=== PATIENT | male | born 1940 | race Caucasian/White ===

== ENCOUNTER 2021-04-09 23:41 | Emergency (ER) | payer OTHER ==
[~2021-04-09] VITALS: Ht 172.7 cm; Wt 70.3 kg
[2021-04-09 23:41] VITALS: BP_SYST 138
[~2021-04-09 23:41] MED LIST: AMLO5TAB92 PO; HYDR25TA4 PO; LISI20TA30 PO; MESA400T14 PO; METF1000 PO
[2021-04-10] MEDS ORDERED: NITROGLYCERIN 1 INCH (GM) OINT. TD ONE
--- NOTE | 2021-04-10 00:09 | NUR ---
ER at bedside examining patient.
--- NOTE | 2021-04-10 00:44 | NUR ---
PT B[facility] FOR [facility] STARTING AT 1500 YESTERDAY. PT STATES IT STARTED AND HASNT ENDED ALL NIGHT. 4/10 PAIN INITIALLY. NOW IS 2/10. PT HAD A HX OF STROKE IN FEBRUARY WITH NO DEFICITS. PT STATE MOST OF HIS PAIN IS GONE NOW. A&OX4.
[2021-04-10 01:47] LABS: ANION GAP 13 (5-15); CALCIUM 8.8 mg/dL (8.4-11.0); CHLORIDE 93 mmol/L (98-107); CREATININE 0.79 mg/dL (0.55-1.30); GLUCOSE 115 mg/dL (70-99); POTASSIUM 4.1 mmol/L (3.5-5.1); SODIUM SERUM 129 mmol/L (136-145); UREA NITROGEN, BLOOD 13 mg/dL (8-21)
[2021-04-10 01:59] LABS: ALANINE AMINOTRANSFERASE 32 U/L (12-78); ALBUMIN 3.6 g/dL (3.4-4.8); ASPARTATE AMINOTRANSFERASE 24 U/L (10-37); TOTAL BILIRUBIN 0.5 mg/dL (0.0-1.0)
--- NOTE | 2021-04-10 02:00 | NUR ---
PT SLEEPING IN BED. VSS.
[2021-04-10 02:39] LABS: BASOPHILS # (AUTO) 0.1 K/uL (0.0-0.2); BASOPHILS % (AUTO) 0.8 % (0.0-2.0); EOSINOPHILS # (AUTO) 0.1 K/uL (0.0-0.4); EOSINOPHILS % (AUTO) 1.5 % (0.0-4.0); HEMATOCRIT 36.9 % (36-54); HEMOGLOBIN 12.4 g/dL (14.0-18.0); LYMPHOCYTES % (AUTO) 12.5 % (20.5-51.5); MEAN CORPUSCULAR HEMOGLOBIN 29 pg (27-31); MEAN CORPUSCULAR HGB CONC 34 % (32-36); MEAN CORPUSCULAR VOLUME 86 fL (79.0-98.0); MONOCYTES % (AUTO) 12.4 % (1.7-9.3); NEUTROPHILS # (AUTO) 5.9 K/uL (1.8-7.7); NEUTROPHILS % (AUTO) 72.8 % (40.0-70.0); PLATELET COUNT (AUTO) 282 K/uL (130-430); RED BLOOD CELL COUNT(AUTO) 4.32 MIL/uL (4.2-6.2); RED CELL DISTRIBUTION WIDTH 14.8 % (9.0-15.0); WHITE BLOOD COUNT (AUTO) 8.1 K/uL (4.8-10.8)
--- NOTE | 2021-04-10 03:50 | NUR ---
REPEAT EKG DONE FOR PT PER REQUEST OF DR. IVY
[2021-04-10] MEDS ORDERED: ACET-2634 PO (05:56)
[2021-04-10] MEDS ORDERED: ISOS30TA85 PO (05:56)
[2021-04-10] MEDS ORDERED: NITSL SL (05:56)
[2021-04-10] MEDS ORDERED: ONDANSETRON HCL 4 MG/2 ML VIAL IVP ONE (06:00)
[2021-04-10] MEDS ORDERED: MORPHINE 2 MG/ML INJ. SYRINGE IVP ONE (06:00)
--- NOTE | 2021-04-10 06:16 | NUR ---
pts daughter nay contacted nad is aware of his discharge. stated she will be here soon
[2021-04-10 06:30] VITALS: BP_SYST 125
--- NOTE | 2021-04-10 06:32 | NUR ---
Patient given written and verbal discharge instructions and verbalizes understanding. ER MD discussed with patient the results and treatment provided. Patient in stable condition. ID arm band removed. IV catheter removed intact and dressing applied, no active bleeding. Rx of acetaminophen, imdur, nitrostat given. Patient educated on pain management and to follow up with PMD. Pain Scale 1/10. Opportunity for questions provided and answered. Medication side effect fact sheet provided.
== END 2021-04-10 06:32 | disposition home or self-care (01) ==
LOC: SED 23:41
DX: R07.89 Other chest pain (principal); I10 Essential (primary) hypertension; E11.9 Type 2 diabetes mellitus without complications; Z88.2 Allergy status to sulfonamides; Z79.84 Long term (current) use of oral hypoglycemic drugs; Z79.899 Other long term (current) drug therapy
CPT/HCPCS: 36415; 71045; 80053; 83880; 84484; 85025; 93005; 96374; 96375; 99285; J2270; J2405

== ENCOUNTER 2021-04-19 17:55 | Emergency (ER) | payer OTHER, SELFPAY ==
[~2021-04-19] VITALS: Ht 172.7 cm; Wt 81.6 kg
[~2021-04-19 17:55] MED LIST changes: +ACET-2634 PO; +ISOS30TA85 PO; +NITSL SL
[2021-04-19 18:18] VITALS: BP_SYST 149
[2021-04-19] MEDS ORDERED: MORPHINE 4 MG INJ. 4 MG/ML VIAL IVP ONE (20:30)
[2021-04-19 23:20] VITALS: BP_SYST 145
== END 2021-04-19 23:20 | disposition home or self-care (01) ==
LOC: SED 17:55
DX: M54.50 Low back pain, unspecified (principal); M47.812 Spondylosis without myelopathy or radiculopathy, cervical region; M47.814 Spondylosis without myelopathy or radiculopathy, thoracic region; M47.816 Spondylosis without myelopathy or radiculopathy, lumbar region; I10 Essential (primary) hypertension; E11.9 Type 2 diabetes mellitus without complications; Z88.2 Allergy status to sulfonamides
CPT/HCPCS: 71275; 72128; 72131; 72191; 74175; 76376; 82962; 93005; 96374; 99285; J2270; Q9967; 96360; 99283